=== PATIENT | male | born 1995 | race Caucasian/White ===

== ENCOUNTER 2025-10-05 15:01 | Emergency (ER) | payer MEDICAID ==
[~2025-10-05] VITALS: Ht 180.3 cm; Wt 73.0 kg
[2025-10-05 15:16] VITALS: O2SAT 99
[2025-10-05] MEDS ORDERED: ACET-2708 MT (15:42)
[2025-10-05 16:04] VITALS: BP 129/83; PULSE 89; RESP 18; TEMP 36.7; O2SAT 99
== END 2025-10-05 16:07 | disposition home or self-care (01) ==
LOC: ER 15:01
DX: S09.90XA Unspecified injury of head, initial encounter (principal); X58.XXXA Exposure to other specified factors, initial encounter; Y93.89 Activity, other specified; Y92.89 Other specified places as the place of occurrence of the external cause; Y99.8 Other external cause status
CPT/HCPCS: 99282